=== PATIENT | female | born 1960 | race Caucasian/White ===

== ENCOUNTER 2018-04-19 13:25 | Emergency (ER) | payer SELFPAY ==
[2018-04-19 16:23] LABS: Bilirubin Negative (Negative); Blood, Urine Negative (Negative); Clarity CLEAR (Clear); Glucose, Urine (Dipstick) Negative (Negative); Leukocyte Trace (Negative); Nitrite Negative (Negative); Protein, Urine (Dipstick) Negative (Neg-Trace); Specific Gravity, Urine 1.018 (1.002-1.036); Urobilinogen 0.2 mg/dL (0.2-1.0)
[2018-04-19 16:26] LABS: Bacteria/HPF None Seen HPF (None Seen); Hyaline Casts/LPF 0-3 HYALINE CAST LPF (0-3 Hyaline); Pathc Cast-AUWi Flag 0.81 (0-2.49); RBC/HPF 0-3 HPF (0-3); Squamous Epithelial 0-3 HPF (0-3); WBC/HPF 0-3 HPF (0-3)
== END 2018-04-19 18:08 | disposition home or self-care (01) ==
LOC: ERS 13:25
DX: J02.9 Acute pharyngitis, unspecified (principal)
CPT/HCPCS: 81003; 81015; 87081; 87430; 99283